=== PATIENT | female | born 1935 | race Caucasian/White ===

== ENCOUNTER → 2016-12-15 | Outpatient (CLI) | payer OTHER, BC | END | disposition home or self-care (01) | DX: R26.2 Difficulty in walking, not elsewhere classified (principal); M17.11 Unilateral primary osteoarthritis, right knee; M25.561 Pain in right knee; M25.661 Stiffness of right knee, not elsewhere classified; M62.81 Muscle weakness (generalized) | CPT/HCPCS: 97110 GP; 97150 GO; 97161 GP; 97165 GO; G8978 GP; G8979 GP; G8980 GP; G8987 GO; G8988 GO; G8989 GO ==

== ENCOUNTER 2017-01-25 11:56 | Inpatient (IN) | payer OTHER, BC ==
[~2017-01-25] VITALS: Ht 157.5 cm; Wt 83.7 kg
[2017-02-22] MEDS ORDERED: FEOSOL325 MG PO (08:31)
[2017-02-22] MEDS ORDERED: VITAMIN D400 UNIT PO (08:32)
[2017-02-22] MEDS ORDERED: TYLENOL EXTRA500 MG PO (08:32)
[2017-02-22] MEDS ORDERED: MULTIPLE VITAM1 EACH PO (08:32)
[2017-02-22] MEDS ORDERED: ACID REDUCER 1150 MG PO (08:33)
[2017-02-23 09:31] VITALS: BP 145/86
[2017-02-23 14:55] LABS: HEMATOCRIT 41.2 % (36.0-46.0); MCH 31.8 PG (29.0-34.0); MCHC 33.3 G/DL (30.0-36.0); MCV 95.6 FL (83-99); MEAN PLAT.VOLUME 10.6 uM^3 (9.5-12.4); PLATELET COUNT 183 K/uL (156-360); RBC DIS.WIDTH-CV 12.7 % (11.8-14.6); RED BLOOD COUNT 4.31 M/uL (3.80-5.20)
[2017-02-23 19:32] VITALS: BP 122/87
[2017-02-23 19:55] VITALS: BP 122/87
[2017-02-24] VITALS (7 sets, daily range): BP systolic 126–179; BP diastolic 65–85
[2017-02-24 06:47] LABS: HEMATOCRIT 36.6 % (36.0-46.0); MCV 94.1 FL (83-99)
[2017-02-24 07:09] LABS: ANION GAP 10 MEQ/L (2-14); CHLORIDE 102 MEQ/L (99-109); GFR ESTIMATE (CALCULATED) 56 mL/min/; GLUCOSE 158 mg/dL (70-99); SAMPLE HEMOLYSIS CHECK 0; SAMPLE ICTERIC CHECK 0; SAMPLE LIPEMIA CHECK 0; SODIUM 134 MEQ/L (136-147); UREA NITROGEN (BUN) 15 mg/dL (9-23)
[2017-02-24 17:35] LABS: POINT-OF-CARE METER ID UU14174215
[2017-02-24 17:37] LABS: HEMATOCRIT 34.3 % (36.0-46.0); MCH 31.1 PG (29.0-34.0); MCHC 33.5 G/DL (30.0-36.0); MCV 92.7 FL (83-99); MEAN PLAT.VOLUME 10.9 uM^3 (9.5-12.4); PLATELET COUNT 182 K/uL (156-360); RBC DIS.WIDTH-CV 12.9 % (11.8-14.6); RBC DIS.WIDTH-SD 43.9 % (39-53); WHITE BLOOD COUNT 16.1 K/uL (4.1-10.2)
[2017-02-24 17:50] LABS: ANION GAP 8 MEQ/L (2-14); CHLORIDE 99 MEQ/L (99-109); POTASSIUM 4.4 MEQ/L (3.7-5.4); SAMPLE HEMOLYSIS CHECK 0; SAMPLE ICTERIC CHECK 0; SAMPLE LIPEMIA CHECK 0; SODIUM 129 MEQ/L (136-147); TOTAL BILIRUBIN 1.4 MG/DL (0.0-1.0)
[2017-02-24 17:56] LABS: ALKALINE PHOSPHATASE 53 IU/L (3-129); GFR ESTIMATE (CALCULATED) > 59 mL/min/; GLUCOSE 177 mg/dL (70-99); UREA NITROGEN (BUN) 15 mg/dL (9-23)
[2017-02-24 17:58] LABS: TROP-I INTERPRETATION NEGATIVE; TROPONIN-I 0.04 ng/mL (0.0-0.30)
[2017-02-24 18:49] LABS: ADD MIUA? YES; BILIRUBIN NEGATIVE; BLOOD SMALL; COLOR YELLOW ((YELLOW)); GLUCOSE (STRIP) 50; KETONES NEGATIVE; LEUKOCYTES NEGATIVE; NITRITE NEGATIVE; PROTEIN (STRIP) NEGATIVE; SPECIFIC GRAVITY 1.019 (1.000-1.030); UROBILINOGEN 0.2 MG/DL (0.2-1.0)
[2017-02-24 18:52] LABS: BACTERIA NONE SEEN /HPF; EPITHELIAL CELLS NONE SEEN /HPF; MUCUS TRACE /LPF; RED BLOOD CELLS 0-5 /HPF (0-5); UCUL ADDED? YES; WHITE BLOOD CELLS CLUMP RARE /HPF (0-5)
[2017-02-25 04:00] VITALS: BP 164/59
[2017-02-25 07:00] VITALS: BP 133/75
[2017-02-25 07:06] LABS: POINT-OF-CARE METER ID UU14174215
[2017-02-25 07:10] LABS: HEMATOCRIT 29.9 % (36.0-46.0); MCV 93.1 FL (83-99)
[2017-02-25 07:25] VITALS: BP 139/81
[2017-02-25 07:29] LABS: Estimated Average Glucose 105 mg/dL (70-123); HEMOGLOBIN A1c (GLYCOHEMOGLOB) 5.3 % HGB (Below 5.7)
[2017-02-25 07:32] LABS: ANION GAP 7 MEQ/L (2-14); CHLORIDE 100 MEQ/L (99-109); GFR ESTIMATE (CALCULATED) > 59 mL/min/; GLUCOSE 146 mg/dL (70-99); POTASSIUM 4.2 MEQ/L (3.7-5.4); SAMPLE HEMOLYSIS CHECK 0; SAMPLE ICTERIC CHECK 0; SAMPLE LIPEMIA CHECK 0; SODIUM 131 MEQ/L (136-147); UREA NITROGEN (BUN) 17 mg/dL (9-23)
[2017-02-25 07:46] LABS: INTER. NORMALIZED RATIO 1.3; PROTHROMBIN TIME 14.7 SEC (10.2-12.9)
[2017-02-25 07:48] LABS: PTT 26.6 SEC (25-37)
[2017-02-25 08:18] LABS: TROP-I INTERPRETATION NEGATIVE; TROPONIN-I 0.11 ng/mL (0.0-0.30)
[2017-02-25 11:19] VITALS: BP 103/58
[2017-02-25 14:04] LABS: TROP-I INTERPRETATION NEGATIVE; TROPONIN-I 0.14 ng/mL (0.0-0.30)
[2017-02-25 17:16] VITALS: BP 126/58
[2017-02-25 19:02] LABS: TROP-I INTERPRETATION NEGATIVE; TROPONIN-I 0.11 ng/mL (0.0-0.30)
[2017-02-25 19:15] VITALS: BP 140/73
[2017-02-26] VITALS (9 sets, daily range): BP systolic 127–163; BP diastolic 64–85
[2017-02-26 14:55] LABS: INTER. NORMALIZED RATIO 1.2; PROTHROMBIN TIME 13.5 SEC (10.2-12.9)
[2017-02-27] VITALS (8 sets, daily range): BP systolic 122–180; BP diastolic 59–94
[2017-02-27 05:02] LABS: HEMATOCRIT 26.8 % (36.0-46.0); MCH 31.1 PG (29.0-34.0); MCHC 33.6 G/DL (30.0-36.0); MCV 92.7 FL (83-99); MEAN PLAT.VOLUME 10.9 uM^3 (9.5-12.4); PLATELET COUNT 179 K/uL (156-360); RBC DIS.WIDTH-SD 43.4 % (39-53); WHITE BLOOD COUNT 9.6 K/uL (4.1-10.2)
[2017-02-27 05:11] LABS: RED BLOOD COUNT 2.89 M/uL (3.80-5.20)
[2017-02-27 05:20] LABS: CHLORIDE 104 mEq/L (99-109); POTASSIUM 3.8 mEq/L (3.7-5.4); SODIUM 136 mEq/L (136-147)
[2017-02-27 05:21] LABS: GLUCOSE 134 mg/dL (70-99)
[2017-02-27 05:23] LABS: ANION GAP 8 MEQ/L (2-14)
[2017-02-27 05:25] LABS: GFR ESTIMATE (CALCULATED) > 59 mL/min/
[2017-02-27 05:26] LABS: UREA NITROGEN (BUN) 16 mg/dL (9-23)
[2017-02-27 08:09] LABS: INTER. NORMALIZED RATIO 1.3
[2017-02-28 03:49] VITALS: BP 143/86
[2017-02-28 07:17] LABS: PROTHROMBIN TIME 41.8 SEC (10.2-12.9)
[2017-02-28 07:18] LABS: INTER. NORMALIZED RATIO 3.6
[2017-02-28 09:18] VITALS: BP 137/83
[2017-02-28 12:32] VITALS: BP 131/76
[2017-02-28 17:21] VITALS: BP 135/63
[2017-02-28 20:46] VITALS: BP 146/71
[2017-03-01] VITALS (8 sets, daily range): BP systolic 114–166; BP diastolic 55–83
[2017-03-01 07:03] LABS: INTER. NORMALIZED RATIO 5.1; PROTHROMBIN TIME 59.6 SEC (10.2-12.9)
[2017-03-01 08:00] LABS: ANION GAP 7 MEQ/L (2-14); CHLORIDE 103 MEQ/L (99-109); GFR ESTIMATE (CALCULATED) > 59 mL/min/; GLUCOSE 109 mg/dL (70-99); POTASSIUM 3.9 MEQ/L (3.7-5.4); SAMPLE HEMOLYSIS CHECK 0; SAMPLE ICTERIC CHECK 0; SAMPLE LIPEMIA CHECK 0; SODIUM 138 MEQ/L (136-147); UREA NITROGEN (BUN) 15 mg/dL (9-23)
[2017-03-01 08:29] LABS: HEMATOCRIT 29.2 % (36.0-46.0); MCH 32.6 PG (29.0-34.0); MCHC 33.2 G/DL (30.0-36.0); MEAN PLAT.VOLUME 10.6 uM^3 (9.5-12.4); NRBC (%) 0.3 /100 WBC (0-0); RBC DIS.WIDTH-CV 14.1 % (11.8-14.6); RBC DIS.WIDTH-SD 48.7 % (39-53); RED BLOOD COUNT 2.98 M/uL (3.80-5.20); WHITE BLOOD COUNT 9.9 K/uL (4.1-10.2)
[2017-03-01 08:31] LABS: PLATELET COUNT 254 K/uL (156-360)
[2017-03-01 10:14] LABS: TROP-I INTERPRETATION NEGATIVE; TROPONIN-I 0.05 ng/mL (0.0-0.30)
[2017-03-02 04:52] VITALS: BP 164/82
[2017-03-02 07:32] LABS: INTER. NORMALIZED RATIO 1.9; PROTHROMBIN TIME 21.1 SEC (10.2-12.9)
[2017-03-02 08:27] VITALS: BP 140/90
[2017-03-02] MEDS ORDERED: HYDROCODON-ACE1 EAC7 PO (09:09)
[2017-03-02 11:42] VITALS: BP 129/60
[2017-03-02 16:30] VITALS: BP 137/62
[2017-03-02 20:08] VITALS: BP 146/63
[2017-03-03 00:04] VITALS: BP 143/65
[2017-03-03 05:50] VITALS: BP 152/80
[2017-03-03 07:25] LABS: BASOPHIL COUNT 0.1 K/uL (0-0.1); EOSINOPHIL (%) 3.3 % (0-5); EOSINOPHIL COUNT 0.4 K/uL (0-0.3); HEMATOCRIT 29.6 % (36.0-46.0); IMMATURE GRANULOCYTE (%) 4.8 % (0.0-0.7); IMMATURE GRANULOCYTE COUNT 0.5 K/uL; INSTRUMENT ABS NEUTROPHIL CT 7.4 K/uL; LYMPHOCYTE COUNT 1.8 K/uL (1.0-2.8); MCHC 31.8 G/DL (30.0-36.0); MCV 97.7 FL (83-99); MEAN PLAT.VOLUME 10.2 uM^3 (9.5-12.4); MONOCYTE (%) 8.9 % (3-12); NEUTROPHIL (%) 66.7 % (45-76); NEUTROPHIL COUNT 7.4 K/uL (1.8-6.4); PLATELET COUNT 290 K/uL (156-360); RBC DIS.WIDTH-CV 14.8 % (11.8-14.6); RBC DIS.WIDTH-SD 49.7 % (39-53); RED BLOOD COUNT 3.03 M/uL (3.80-5.20); WHITE BLOOD COUNT 11.1 K/uL (4.1-10.2)
[2017-03-03 07:33] LABS: INTER. NORMALIZED RATIO 1.7; PROTHROMBIN TIME 18.9 SEC (10.2-12.9)
[2017-03-03 07:49] LABS: ANION GAP 7 MEQ/L (2-14); CHLORIDE 102 MEQ/L (99-109); GFR ESTIMATE (CALCULATED) > 59 mL/min/; GLUCOSE 118 mg/dL (70-99); POTASSIUM 3.9 MEQ/L (3.7-5.4); SAMPLE HEMOLYSIS CHECK 0; SAMPLE ICTERIC CHECK 0; SAMPLE LIPEMIA CHECK 0; SODIUM 137 MEQ/L (136-147); UREA NITROGEN (BUN) 14 mg/dL (9-23)
[2017-03-03 08:22] VITALS: BP 131/63
[2017-03-03 11:50] VITALS: BP 108/56
[2017-03-03 15:56] VITALS: BP 130/62
[2017-03-03 19:44] VITALS: BP 146/59
[2017-03-04 00:01] VITALS: BP 121/58
[2017-03-04 03:42] VITALS: BP 127/68
[2017-03-04 06:50] LABS: HEMATOCRIT 28.8 % (36.0-46.0); MCH 30.7 PG (29.0-34.0); MCHC 31.3 G/DL (30.0-36.0); MCV 98.3 FL (83-99); PLATELET COUNT 281 K/uL (156-360); RBC DIS.WIDTH-CV 15.4 % (11.8-14.6); RBC DIS.WIDTH-SD 50.8 % (39-53); RED BLOOD COUNT 2.93 M/uL (3.80-5.20); WHITE BLOOD COUNT 10.4 K/uL (4.1-10.2)
[2017-03-04 07:01] LABS: INTER. NORMALIZED RATIO 2.3
[2017-03-04 07:59] VITALS: BP 121/58
[2017-03-04 11:46] VITALS: BP 123/89
[2017-03-04] MEDS ORDERED: COUMADIN2.5 MG PO (11:48)
[2017-03-04] MEDS ORDERED: SENNA PLUS TAB1 EACH PO (11:49)
== END 2017-03-04 14:35 | DRG 469 ==
LOC: 2SOUTH 11:56 → ENRESERV 02-22 22:36 → 2SOUTH 02-23 09:00 → 4EAST 02-23 09:00 → 3WEST 02-23 09:00 → 2SOUTH 02-23 14:01 → 3WEST 02-23 15:38 → ENRESERV 02-25 07:02 → CANRESERV 02-25 07:02 → 3WEST 02-25 07:04 → ENRESERV 02-25 07:12 → 4EAST 02-25 07:14 → ENRESERV 02-26 11:15 → 3EAST 02-26 13:38
PROVIDERS: Hospitalist; Internal Medicine; Orthopaedic Surgery
PROC: 0SRC0J9 Replacement of Right Knee Joint with Synthetic Substitute, Cemented, Open Approach (ICD-10-PCS; principal; 2017-02-23)
DX: M17.11 Unilateral primary osteoarthritis, right knee (principal); D62 Acute posthemorrhagic anemia; E87.1 Hypo-osmolality and hyponatremia; G93.49 Other encephalopathy; G92 Toxic encephalopathy; T40.605A Adverse effect of unspecified narcotics, initial encounter; I26.99 Other pulmonary embolism without acute cor pulmonale; I82.441 Acute embolism and thrombosis of right tibial vein; I48.0 Paroxysmal atrial fibrillation; I48.92 Unspecified atrial flutter; M21.371 Foot drop, right foot; M25.061 Hemarthrosis, right knee; T45.515A Adverse effect of anticoagulants, initial encounter; R73.9 Hyperglycemia, unspecified; K21.9 Gastro-esophageal reflux disease without esophagitis; H54.7 Unspecified visual loss; M21.161 Varus deformity, not elsewhere classified, right knee; I10 Essential (primary) hypertension; I31.3 Pericardial effusion (noninflammatory); E66.9 Obesity, unspecified; Z68.33 Body mass index [BMI] 33.0-33.9, adult; Z82.3 Family history of stroke; Z83.3 Family history of diabetes mellitus
CPT/HCPCS: 70450; 71020; 73560; 80048; 80053; 81003; 82948; 83036; 83605; 83880; 84443; 84484; 85014; 85018; 85025; 85027; 85610; 85730; 87040; 87086; 93005; 93306; 93971; 94799; 97530 GO; 97530 GP; C1713; J0131; J0690; J1170; J1650; J2250; J2405; J3010; J7030; J7050